=== PATIENT | male | born 1995 | race Caucasian/White ===

== ENCOUNTER 2016-06-21 19:51 | Emergency (ER) | payer SELFPAY ==
[~2016-06-21] VITALS: Ht 190.5 cm; Wt 86.4 kg
[2016-06-21 19:54] VITALS: TEMP 98
[2016-06-21 20:29] LABS: BASO # 0.1 (0.0-0.2); BASO % 0.8 % (0.0-2.0); EOS # 0.2 (0.0-0.7); EOS % 2.7 % (0-4.0); GRAN # 4.5 (1.4-6.5); GRAN % 58.3 % (42.2-75.2); HEMATOCRIT 44.9 % (42.0-52.0); HEMOGLOBIN 15.9 g/dl (13.5-18.0); LYMPH # 2.5 (1.2-3.4); LYMPH % 32.2 % (20.0-51.0); MEAN CELL VOLUME 86 fl (80.0-100.0); MEAN CORPUSCULAR HEMOGLOBIN 31 pg (27.0-31.0); MEAN CORPUSCULAR HGB CONC 35 g/dl (33.0-37.0); MEAN PLATELET VOLUME 8.8 fl (7.4-10.4); MONO # 0.5 (0.1-0.6); MONO % 5.9 % (1.7-9.3); PLATELET COUNT 282 K/mm3 (130-400); RED BLOOD COUNT 5.21 M/mm3 (4.20-5.60); REDCELL DISTRIBUTION WIDTH-CV 12.1 % (11.5-14.5); WHITE BLOOD COUNT 7.8 K/mm3 (4.8-10.8)
[2016-06-21 20:41] LABS: ANION GAP 11 mmol/L (7-16); BLOOD UREA NITROGEN 16 mg/dL (9-20); C-REACTIVE PROTEIN < 0.5 mg/dL (0.0-0.9); CALCIUM 9.5 mg/dL (8.4-10.2); CARBON DIOXIDE 31 mmol/L (22-30); CHLORIDE 97 mmol/L (98-107); CREATININE, serum 1.02 mg/dL (0.66-1.25); GLUCOSE 104 mg/dL (74-106); POTASSIUM 3.8 mmol/L (3.4-5.0); SODIUM 139 mmol/L (137-145)
[2016-06-21 21:08] LABS: PH 6 (5-8); SQUAMOUS EPITHELIAL None Seen /hpf; URINE APPEARANCE Clear; URINE BACTERIA None Seen /hpf; URINE BILIRUBIN Negative (NEGATIVE); URINE BLOOD 1+ (NEGATIVE); URINE COLOR Yellow; URINE GLUCOSE Negative (NEGATIVE); URINE KETONE Negative (NEGATIVE); URINE UROBILINOGEN Negative (NEGATIVE); URINE WBC 0-2 /hpf
[2016-06-21 21:40] VITALS: BP 140/76; PULSE 71
== END 2016-06-21 21:44 | disposition home or self-care (01) ==
LOC: COL.ER 19:51
PROVIDERS: Physician Assistant
DX: R10.31 Right lower quadrant pain (principal); R31.9 Hematuria, unspecified

== ENCOUNTER 2017-06-28 09:11 | Emergency (ER) | payer SELFPAY ==
[~2017-06-28] VITALS: Ht 190.5 cm; Wt 85.0 kg
[2017-06-28 09:30] VITALS: BP 116/77; PULSE 83; TEMP 98.8
== END 2017-06-28 09:43 | disposition left against medical advice (07) ==
LOC: COL.ER 09:11
DX: S61.219A Laceration without foreign body of unspecified finger without damage to nail, initial encounter (principal); W26.9XXA Contact with unspecified sharp object(s), initial encounter